=== PATIENT | female | born 1975 | race American Indian/Alaskan Native ===

== ENCOUNTER 2017-05-25 18:37 | Emergency (ER) | payer SELFPAY ==
[2017-05-26 13:37] LABS: HCG Qualitative,Urine Negative (Negative)
[2017-05-26] MEDS ORDERED: TYLENOL PO ONE (13:59)
[2017-05-26] MEDS ORDERED: MOTRIN PO ONE (13:59)
--- NOTE | 2017-05-26 13:59 | Event Note ---
Date: 05/26/17 Evaluated patient patient has having intermittent back pain at rest Patient's symptoms have been going on for the last couple of days. Patient complains of pain in back as 08/06 I will give patient tylenol and motrin
--- NOTE | 2017-05-26 14:07 | Emergency Department Report ---
ED General Adult HPI - General Chief complaint: Neck Pain/Injury Stated complaint: BACK/NECK PAIN Time Seen by Provider: 05/26/17 14:02 Source: patient Mode of arrival: Ambulatory Limitations: No Limitations - History of Present Illness Initial comments: She is a 42-year-old female with no significant past medical history who presents with neck pain and back pain that's been going on intermittently for the last couple days. Patient states that the pain began when she woke up after sleeping on the couch. Patient's neck pain is a 6 out of 10 as an achy type of pain patient denies having any fever or chills she denies having any trauma to the head or neck she states that sometimes position changes make it better nothing makes it worse. Patient has not tried any [id number] medications for it. - Related Data Previous Rx's Medication Instructions Recorded Last Taken Type Diclofenac Sodium [Voltaren] 100 gm TP Q6H #1 gel..gram. 05/26/17 Unknown Rx Allergies Allergy/AdvReac Type Severity Reaction Status Date / Time No Known Allergies Allergy Unverified 05/25/17 19:46 ED Review of Systems ROS: Stated complaint: BACK/NECK PAIN Other details as noted in HPI Constitutional: denies: chills, fever Eyes: denies: eye pain, eye discharge, vision change ENT: denies: ear pain, throat pain Respiratory: denies: cough, shortness of breath, wheezing Cardiovascular: denies: chest pain, palpitations Endocrine: no symptoms reported Gastrointestinal: denies: abdominal pain, nausea, diarrhea Genitourinary: denies: urgency, dysuria, discharge Musculoskeletal: myalgia. denies: back pain, joint swelling, arthralgia Skin: denies: rash, lesions Neurological: denies: headache, weakness, paresthesias Psychiatric: denies: anxiety, depression Hematological/Lymphatic: denies: easy bleeding, easy bruising ED Past Medical Hx - Past Medical History Previous Medical History?: No - Surgical History Past Surgical History?: No Additional Surgical History: gaglion cyst - Social History Smoking Status: Never Smoker Substance Use Type: None - Medications Home Medications: Home Medications Medication Instructions Recorded Confirmed Last Taken Type Diclofenac Sodium [Voltaren] 100 gm TP Q6H #1 gel..gram. 05/26/17 Unknown Rx ED Physical Exam - General Limitations: No Limitations General appearance: alert, in no apparent distress - Head Head exam: Present: atraumatic, normocephalic - Eye Eye exam: Present: normal appearance - ENT ENT exam: Present: mucous membranes moist - Neck Neck exam: Present: normal inspection - Respiratory Respiratory exam: Present: normal lung sounds bilaterally. Absent: respiratory distress - Cardiovascular Cardiovascular Exam: Present: regular rate, normal rhythm. Absent: systolic murmur, diastolic murmur, rubs, gallop - GI/Abdominal GI/Abdominal exam: Present: soft, normal bowel sounds - Extremities Exam Extremities exam: Present: normal inspection - Back Exam Back exam: Present: normal inspection - Neurological Exam Neurological exam: Present: alert, oriented X3 - Psychiatric Psychiatric exam: Present: normal affect, normal mood - Skin Skin exam: Present: warm, dry, intact, normal color. Absent: rash ED Course Vital Signs 05/25/17 05/25/17 19:37 19:43 Temperature 98.3 F 98.3 F Pulse Rate 112 H 110 H Respiratory 18 18 Rate Blood Pressure 157/90 157/90 O2 Sat by Pulse 100 100 Oximetry ED Medical Decision Making - Medical Decision Making Cdx: Cervicalgia ddx: Trapezius muscle sprain, tension headache I will send patient home with voltaren and will have patient f/u with a PCP. Pt denies having any blurred vision she states that she was just "light headed." And does not clinically need the CT. Discussed plan for discharge with patient. Additional verbal discharge instructions were given and patient agrees with plan. Critical care attestation.: If time is entered above; I have spent that time in minutes in the direct care of this critically ill patient, excluding procedure time. ED Disposition Clinical Impression: Cervicalgia Disposition: DC-01 TO HOME OR SELFCARE Is pt being admited?: No Does the pt Need Aspirin: No Condition: Stable Instructions: Cervical Sprain (ED) Prescriptions: Diclofenac Sodium [Voltaren] 100 gm TP Q6H #1 gel..gram. Referrals: JUAN LOPEZ MD [Referring] - 3-5 Days
--- NOTE | 2017-05-26 14:14 | Cat Scan Report ---
CT HEAD WITHOUT CONTRAST: HISTORY: Headache, blurred vision. TECHNIQUE: Sequential 2.5mm CT images. COMPARISON: none. FINDINGS: Cerebral Parenchyma: Within normal limits. Cerebellum: Within normal limits. Brainstem: Within normal limits. Ventricles: Normal. Sella: Normal. Extra-axial spaces: Normal. Basal Cisterns: Normal. Intracranial Hemorrhage: None. Midline Shift: None. Calvarium: Normal. Sinuses: Normal. Mastoid Air Cells: Normal. Visualized Orbits: Normal. IMPRESSION: Cranial CT scan within normal limits.
[2017-05-26 14:17] VITALS: BP 150/88
== END 2017-05-26 14:16 | disposition home or self-care (01) ==
LOC: ED 18:37
DX: M54.2 Cervicalgia (principal); M54.9 Dorsalgia, unspecified; R51 Headache
CPT/HCPCS: 70450; 81025